=== PATIENT | female | born 1990 | race Caucasian/White ===

== ENCOUNTER → 2020-09-13 | Outpatient (CLI) | payer BC | LOC: LAB 21:19 | DX: O20.0 Threatened abortion (principal) | CPT/HCPCS: 84702; 86850; 86900; 86901 ==

== ENCOUNTER → 2020-09-15 | Outpatient (CLI) | payer BC, OTHER | LOC: LAB 20:43 | DX: O20.0 Threatened abortion (principal) | CPT/HCPCS: 36415; 84702 ==

== ENCOUNTER → 2020-10-18 | Outpatient (CLI) | payer BC, OTHER | LOC: LAB 01:02 | DX: N96 Recurrent pregnancy loss (principal) ==

== ENCOUNTER → 2021-06-19 | Outpatient (CLI) | payer BC ==
[2021-06-19 12:48] LABS: HEMOGLOBIN 11.6 gm/dl (12.3-15.3); RED BLOOD COUNT 3.75 M/UL (4.00-5.10); WHITE BLOOD COUNT 12.9 K/UL (4.5-11.0)
== END ==
LOC: LAB 09:03
PROVIDERS: Obstetrics & Gynecology
DX: O99.810 Abnormal glucose complicating pregnancy (principal); Z3A.00 Weeks of gestation of pregnancy not specified
CPT/HCPCS: 82950; 85025; 86780

== ENCOUNTER 2021-07-01 09:38 | Outpatient (CLI) | payer BC | END 2021-07-01 12:32 | disposition home or self-care (01) | LOC: GENOP 09:38 | DX: O46.93 Antepartum hemorrhage, unspecified, third trimester (principal); O47.03 False labor before 37 completed weeks of gestation, third trimester; O23.43 Unspecified infection of urinary tract in pregnancy, third trimester; N39.0 Urinary tract infection, site not specified; O99.343 Other mental disorders complicating pregnancy, third trimester; F41.1 Generalized anxiety disorder; Z3A.30 30 weeks gestation of pregnancy | CPT/HCPCS: 81001; 96372 ==

== ENCOUNTER 2021-07-05 07:26 | Outpatient (CLI) | payer BC ==
[~2021-07-05] VITALS: Ht 172.7 cm; Wt 79.8 kg
== END 2021-07-05 10:52 | disposition home or self-care (01) ==
LOC: GENOP 07:26
DX: O46.93 Antepartum hemorrhage, unspecified, third trimester (principal); O26.853 Spotting complicating pregnancy, third trimester; Z3A.30 30 weeks gestation of pregnancy; O23.43 Unspecified infection of urinary tract in pregnancy, third trimester; N39.0 Urinary tract infection, site not specified; O99.343 Other mental disorders complicating pregnancy, third trimester; F41.1 Generalized anxiety disorder
CPT/HCPCS: 81001; 96372; J3105

== ENCOUNTER 2021-08-30 17:12 | Inpatient (IN) | payer BC ==
[~2021-08-30] VITALS: Ht 172.7 cm; Wt 86.2 kg
[2021-08-30] MEDS ORDERED: PRENATAL VITAM1 EAC5 PO (18:55)
[2021-08-30 19:09] LABS: HEMOGLOBIN 11.8 gm/dl (12.3-15.3); RED BLOOD COUNT 4.01 M/UL (4.00-5.10); WHITE BLOOD COUNT 13.3 K/UL (4.5-11.0)
[2021-08-31] MEDS ORDERED: COLACE 100MG C100 MG PO (11:51)
[2021-08-31] MEDS ORDERED: IBUPROFEN600 MG PO (11:51)
[2021-09-01 05:05] LABS: HEMOGLOBIN 11.2 gm/dl (12.3-15.3)
[2021-09-01] MEDS ORDERED: HYDROCODONE-AC1 EACH PO (11:52)
== END 2021-09-01 13:50 | disposition home or self-care (01) | DRG 807 ==
LOC: GENOP 17:12 → OB 17:25
PROVIDERS: ADMIT Obstetrics & Gynecology
PROC: 4A1HXCZ Monitoring of Products of Conception, Cardiac Rate, External Approach (ICD-10-PCS; 2021-08-30)
PROC: 10E0XZZ Delivery of Products of Conception, External Approach (ICD-10-PCS; principal; 2021-08-31)
PROC: 0KQM0ZZ Repair Perineum Muscle, Open Approach (ICD-10-PCS; 2021-08-31)
PROC: 10907ZC Drainage of Amniotic Fluid, Therapeutic from Products of Conception, Via Natural or Artificial Opening (ICD-10-PCS; 2021-08-31)
PROC: 3E0234Z Introduction of Serum, Toxoid and Vaccine into Muscle, Percutaneous Approach (ICD-10-PCS; 2021-08-31)
DX: O70.1 Second degree perineal laceration during delivery (principal); Z37.0 Single live birth; Z3A.36 36 weeks gestation of pregnancy; Z20.822 Contact with and (suspected) exposure to COVID-19; O62.2 Other uterine inertia; Z98.890 Other specified postprocedural states; Z23 Encounter for immunization
CPT/HCPCS: 36415; 81001; 85014; 85018; 85025; 90715; J2210; J2405; J2590; J7120; U0002

== ENCOUNTER → 2022-02-07 | Outpatient (CLI) | payer BC ==
[~2022-02-07] MED LIST: COLACE 100MG C100 MG PO; HYDROCODONE-AC1 EACH PO; IBUPROFEN600 MG PO; PRENATAL VITAM1 EAC5 PO
== END ==
LOC: LAB 09:11
DX: Z53.9 Procedure and treatment not carried out, unspecified reason (principal)
CPT/HCPCS: 87081; 87880; U0002